=== PATIENT | female | born 1975 | race Caucasian/White ===

== ENCOUNTER 2017-05-23 05:47 | Day surgery (SDC) | payer BC ==
[2017-05-23] MEDS ORDERED: DEXTROSE 5%-LR 1,000 ML IV (06:45)
[2017-05-23] MEDS ORDERED: CEFAZOLIN 1 GM INJ (07:00)
[2017-05-23 07:06] LABS: ADD MAN DIFF? NO
[2017-05-23 07:20] LABS: WHITE BLOOD COUNT 4.6 10^3/ul (4.8-10.8)
[2017-05-23 07:20] LABS: ABNORMAL IP MESSAGE 1; BASOPHILS % 0.4 % (0.0-2.0); EOSINOPHILS # 0.1 10^3/ul (0.0-0.5); EOSINOPHILS % 2.8 % (0.0-7.0); HEMATOCRIT 33.1 % (37.0-47.0); HEMOGLOBIN 10.2 g/dl (12.0-16.0); LYMPHOCYTES # 1.3 10^3/ul (0.8-2.9); LYMPHOCYTES % 28.6 % (15.0-51.0); MEAN CORPUSCULAR HEMOGLOBIN 24.2 pg (29.0-33.0); MEAN CORPUSCULAR HGB CONC 30.8 g/dl (32.0-37.0); MEAN CORPUSCULAR VOLUME 78.4 fl (82.0-101.0); MEAN PLATELET VOLUME 11.4 fl (7.4-10.4); MONOCYTE # 0.4 10^3/ul (0.3-0.9); MONOCYTES % 8.7 % (0.0-11.0); NEUTROPHIL # 2.7 10^3/ul (1.6-7.5); NEUTROPHILS % 59.1 % (39.0-77.0); PLATELET COUNT 219 10^3/UL (140-415); RED BLOOD COUNT 4.22 10^6/ul (4.20-5.40); RED CELL DISTRIBUTION WIDTH 23.4 % (11.5-14.5)
[2017-05-23 07:26] LABS: ADD UMIC YES; UR ASCORBIC ACID 40 mg/dL (NEGATIVE); UR BILIRUBIN (Dip) NEGATIVE (NEGATIVE); UR BLOOD (Dip) 2+ mg/dL (NEGATIVE); UR CLARITY CLEAR (CLEAR); UR COLOR YELLOW (YELLOW); UR GLUCOSE (Dip) NEGATIVE (NEGATIVE); UR KETONES (Dip) NEGATIVE (NEGATIVE); UR LEUKOCYTE ESTERASE (Dip) NEGATIVE Leu/ul (NEGATIVE); UR MUCUS FEW /HPF (NONE SEEN); UR NITRITE (Dip) NEGATIVE (NEGATIVE); UR RBC 15 /HPF (0-5); UR SQUAMOUS EPITHELIAL CELL FEW /HPF (FEW); UR TOTAL PROTEIN (Dip) NEGATIVE (NEGATIVE); UR UROBILINOGEN (Dip) NEGATIVE (NEGATIVE); UR WBC 2 /HPF (0-5)
[2017-05-23 07:33] LABS: POSITIVE DIFF @See below
[2017-05-23 07:36] LABS: INR 0.88; PT RATIO 0.9
[2017-05-23 07:37] LABS: PARTIAL THROMBOPLASTIN TIME 30.2 Sec (25.0-35.0)
[2017-05-23 07:45] LABS: ALANINE AMINOTRANSFERASE 27 IU/L (13-69); ALBUMIN 3.9 g/dl (3.3-4.9); ALBUMIN/GLOBULIN RATIO 1.14; ALKALINE PHOSPHATASE 75 IU/L (42-121); ANION GAP 15 (8-16); ASPARTATE AMINO TRANSFERASE 21 IU/L (15-46); BILIRUBIN,INDIRECT 0.2 mg/dl (0-1.1); BILIRUBIN,TOTAL 0.2 mg/dl (0.2-1.3); CARBON DIOXIDE 24 mmol/L (21-31); CHLORIDE 107 mmol/L (97-110); GLUCOSE 124 mg/dl (70-220); TOTAL PROTEIN 7.3 g/dl (6.1-8.1)
[2017-05-23 07:47] LABS: BLOOD UREA NITROGEN 11 mg/dl (7-20); CALCIUM 8.7 mg/dl (8.4-10.2); CREATININE 0.67 mg/dl (0.44-1.00); SODIUM 142 mmol/L (135-144)
[2017-05-23] MEDS ORDERED: MIDAZOLAM 1 MG/ML 2 ML INJ (07:47)
[2017-05-23] MEDS ORDERED: FENTAnyl 50 MCG/ML VIAL (07:48)
[2017-05-23] MEDS ORDERED: PROPOFOL 20 ML (07:49)
[2017-05-23] MEDS ORDERED: ONDANSETRON 4 MG INJ (07:57)
[2017-05-23] MEDS ORDERED: LIDOCAINE 100 MG SYRINGE (07:57)
[2017-05-23] MEDS: CEFAZOLIN 2 GM/50 ML (PMX) 50 ML IVPB (08:05)
[2017-05-23] MEDS ORDERED: ONDANSETRON 4 MG INJ IV (09:00)
[2017-05-23] MEDS ORDERED: LABETALOL HCL 20MG INJ IV (09:00)
[2017-05-23] MEDS ORDERED: DIPHENHYDRAMINE 50 MG INJ IV (09:00)
[2017-05-23] MEDS ORDERED: MEPERIDINE 25 MG INJ IV (09:00)
[2017-05-23] MEDS ORDERED: KETOROLAC 15 MG INJ IV (09:00)
[2017-05-23] MEDS ORDERED: HYDROmorphONE (0.2 MG/ML) 10ML SYG IV (09:00)
[2017-05-23] MEDS ORDERED: FENTAnyl 50 MCG/ML VIAL IV ×2 (09:00)
[2017-05-23] MEDS ORDERED: METOCLOPRAMIDE 10 MG INJ IV (09:00)
[2017-05-23] MEDS: hydrALAzine 20 MG INJ IV (09:25)
[2017-05-23] MEDS ORDERED: KETOROLAC 30 MG INJ (09:35)
[2017-05-23] MEDS: KETOROLAC 30 MG INJ IV (09:37)
== END 2017-05-23 10:50 | disposition home or self-care (01) ==
LOC: SDS 05:47
DX: N92.1 Excessive and frequent menstruation with irregular cycle (principal); D25.9 Leiomyoma of uterus, unspecified; E11.9 Type 2 diabetes mellitus without complications; I10 Essential (primary) hypertension
CPT/HCPCS: 58353; 71045; 80053; 81001; 84703; 85025; 85610; 85730; 88305

== ENCOUNTER 2017-07-10 06:03 | Inpatient (IN) | payer BC ==
[2017-07-10] MEDS ORDERED: ROCURONIUM 50 MG INJ ×2 (07:00→08:18)
[2017-07-10] MEDS ORDERED: SUCCINYLCHOLINE CHLORIDE 100 MG/5 ML SYG IV (07:00)
[2017-07-10] MEDS ORDERED: CEFAZOLIN 2 GM/50 ML (PMX) 50 ML IVPB (07:00)
[2017-07-10] MEDS ORDERED: LACTATED RINGER'S 1,000 ML IV* (07:00)
[2017-07-10] MEDS ORDERED: ACETAMINOPHEN 1000 MG/100 ML IVPB (07:00)
[2017-07-10] MEDS ORDERED: MIDAZOLAM 1 MG/ML 2 ML INJ (07:56)
[2017-07-10] MEDS ORDERED: FENTAnyl 50 MCG/ML VIAL ×2 (07:56→08:45)
[2017-07-10] MEDS ORDERED: LIDOCAINE 2% (SDV) 5 ML INJ (07:59)
[2017-07-10] MEDS ORDERED: PROPOFOL 20 ML (07:59)
[2017-07-10] MEDS ORDERED: CEFAZOLIN 1 GM INJ (08:18)
[2017-07-10] MEDS ORDERED: HYDROCODONE/APAP (5/325) TAB PO (08:30)
[2017-07-10] MEDS ORDERED: DIPHENHYDRAMINE 50 MG CAP PO (08:30)
[2017-07-10] MEDS ORDERED: BISACODYL (EC) 5 MG TAB PO (08:30)
[2017-07-10] MEDS ORDERED: KETOROLAC 30 MG INJ IV ×2 (08:30→09:00)
[2017-07-10] MEDS ORDERED: ZOLPIDEM 5 MG TAB PO (08:30)
[2017-07-10] MEDS ORDERED: HYDROmorphONE 0.5 MG/0.5 ML SYG IV (08:30)
[2017-07-10] MEDS ORDERED: METOCLOPRAMIDE 10 MG INJ (08:41)
[2017-07-10] MEDS ORDERED: ONDANSETRON 4 MG INJ (08:41)
[2017-07-10] MEDS ORDERED: DEXAMETHASONE 4 MG/ML 1 ML INJ (08:43)
[2017-07-10] MEDS ORDERED: hydrALAzine 20 MG INJ (08:48)
[2017-07-10] MEDS ORDERED: hydrALAzine 20 MG INJ IV (09:00)
[2017-07-10] MEDS ORDERED: LABETALOL HCL 20MG INJ IV (09:00)
[2017-07-10] MEDS ORDERED: METOCLOPRAMIDE 10 MG INJ IV (09:00)
[2017-07-10] MEDS ORDERED: FENTAnyl 50 MCG/ML VIAL IV ×2 (09:00)
[2017-07-10] MEDS ORDERED: HYDROmorphONE (0.2 MG/ML) 10ML SYG IV (09:00)
[2017-07-10] MEDS: BENAZEPRIL 5 MG TAB PO (09:00)
[2017-07-10] MEDS ORDERED: ALBUMIN HUMAN 5% 250 ML (09:59)
[2017-07-10] MEDS: HYDROmorphONE (0.2 MG/ML) 10ML SYG IV ×2 (11:11→11:21)
[2017-07-10] MEDS: ONDANSETRON 4 MG INJ IV ×2 (11:13→21:05)
[2017-07-10] MEDS: METOCLOPRAMIDE 10 MG TAB PO ×2 (12:05→17:02)
[2017-07-10] MEDS: LACTATED RINGER'S 1,000 ML IV ×3 (12:10→22:18)
[2017-07-10] MEDS: KETOROLAC 30 MG INJ IV ×3 (14:00→21:05)
[2017-07-10] MEDS: CEFAZOLIN 1 GM/50 ML (PMX) 50 ML IVPB ×2 (14:04→21:13)
[2017-07-10] MEDS: metFORMIN 500 MG TAB PO (17:28)
[2017-07-10] MEDS ORDERED: DEXTROSE 50% 50 ML SYRINGE IV ×2 (17:30)
[2017-07-10] MEDS ORDERED: GLUCAGON 1 MG INJ IM (17:30)
[2017-07-10] MEDS ORDERED: GLUCOSE GEL 15 GRAM TUBE BUCCAL (17:30)
[2017-07-10] MEDS ORDERED: GLUCOSE GEL 15 GRAM TUBE PO ×2 (17:30)
[2017-07-11] MEDS: METOCLOPRAMIDE 10 MG TAB PO ×4 (00:22→18:24)
[2017-07-11] MEDS: KETOROLAC 30 MG INJ IV ×4 (03:24→20:40)
[2017-07-11 05:07] LABS: ADD MAN DIFF? NO
[2017-07-11 05:12] LABS: WHITE BLOOD COUNT 12.9 10^3/ul (4.8-10.8)
[2017-07-11 05:12] LABS: BASOPHILS % 0.1 % (0.0-2.0); HEMATOCRIT 32.7 % (37.0-47.0); HEMOGLOBIN 11.1 g/dl (12.0-16.0); LYMPHOCYTES % 7.5 % (15.0-51.0); MEAN CORPUSCULAR HEMOGLOBIN 27.5 pg (29.0-33.0); MEAN CORPUSCULAR HGB CONC 33.9 g/dl (32.0-37.0); MEAN CORPUSCULAR VOLUME 80.9 fl (82.0-101.0); MONOCYTE # 1.1 10^3/ul (0.3-0.9); MONOCYTES % 8.2 % (0.0-11.0); NEUTROPHIL # 10.9 10^3/ul (1.6-7.5); PLATELET COUNT 233 10^3/UL (140-415); RED BLOOD COUNT 4.04 10^6/ul (4.20-5.40); RED CELL DISTRIBUTION WIDTH 18.7 % (11.5-14.5)
[2017-07-11] MEDS: CEFAZOLIN 1 GM/50 ML (PMX) 50 ML IVPB (05:27)
[2017-07-11] MEDS: LACTATED RINGER'S 1,000 ML IV (08:15)
[2017-07-11] MEDS: metFORMIN 500 MG TAB PO ×2 (09:23→18:24)
[2017-07-11] MEDS: BENAZEPRIL 5 MG TAB PO (09:24)
[2017-07-12] MEDS: METOCLOPRAMIDE 10 MG TAB PO ×5 (00:11→23:32)
[2017-07-12] MEDS: KETOROLAC 30 MG INJ IV (02:30)
[2017-07-12] MEDS: HYDROCODONE/APAP (5/325) TAB PO (03:45)
[2017-07-12] MEDS: metFORMIN 500 MG TAB PO ×3 (09:17→18:02)
[2017-07-12] MEDS: IBUPROFEN 800 MG TAB PO ×3 (09:18→20:17)
[2017-07-12] MEDS: BISACODYL (EC) 5 MG TAB PO (09:18)
[2017-07-12] MEDS: BENAZEPRIL 5 MG TAB PO (09:18)
[2017-07-13 05:28] LABS: ADD MAN DIFF? NO
[2017-07-13 05:42] LABS: WHITE BLOOD COUNT 6.9 10^3/ul (4.8-10.8)
[2017-07-13 05:42] LABS: BASOPHILS % 0.4 % (0.0-2.0); EOSINOPHILS # 0.3 10^3/ul (0.0-0.5); EOSINOPHILS % 4.8 % (0.0-7.0); HEMATOCRIT 32.6 % (37.0-47.0); HEMOGLOBIN 10.8 g/dl (12.0-16.0); LYMPHOCYTES # 1.7 10^3/ul (0.8-2.9); LYMPHOCYTES % 24.2 % (15.0-51.0); MEAN CORPUSCULAR HEMOGLOBIN 27.6 pg (29.0-33.0); MEAN CORPUSCULAR HGB CONC 33.1 g/dl (32.0-37.0); MEAN CORPUSCULAR VOLUME 83.4 fl (82.0-101.0); MONOCYTE # 0.6 10^3/ul (0.3-0.9); MONOCYTES % 7.9 % (0.0-11.0); NEUTROPHIL # 4.3 10^3/ul (1.6-7.5); NEUTROPHILS % 62.4 % (39.0-77.0); PLATELET COUNT 226 10^3/UL (140-415); RED BLOOD COUNT 3.91 10^6/ul (4.20-5.40); RED CELL DISTRIBUTION WIDTH 18.1 % (11.5-14.5)
[2017-07-13] MEDS: METOCLOPRAMIDE 10 MG TAB PO ×2 (06:50→12:00)
[2017-07-13] MEDS: IBUPROFEN 800 MG TAB PO ×2 (08:44→12:33)
[2017-07-13] MEDS: BENAZEPRIL 5 MG TAB PO (08:44)
[2017-07-13] MEDS: metFORMIN 500 MG TAB PO (08:44)
[2017-07-13] MEDS ORDERED: IBUPROFEN 800 MG TAB PO (09:00)
== END 2017-07-13 17:06 | disposition home or self-care (01) | DRG 743 ==
LOC: REC 06:03 → MS1 11:35
PROVIDERS: Obstetrics & Gynecology
PROC: 0UT90ZZ Resection of Uterus, Open Approach (ICD-10-PCS; principal; 2017-07-10 07:30)
PROC: 0D5U0ZZ Destruction of Omentum, Open Approach (ICD-10-PCS; 2017-07-10 07:30)
PROC: 0UT70ZZ Resection of Bilateral Fallopian Tubes, Open Approach (ICD-10-PCS; 2017-07-10 07:30)
PROC: 0UB20ZZ Excision of Bilateral Ovaries, Open Approach (ICD-10-PCS; 2017-07-10 07:30)
PROC: 0U520ZZ Destruction of Bilateral Ovaries, Open Approach (ICD-10-PCS; 2017-07-10 07:30)
DX: D25.9 Leiomyoma of uterus, unspecified (principal); R10.2 Pelvic and perineal pain; N99.4 Postprocedural pelvic peritoneal adhesions; N92.1 Excessive and frequent menstruation with irregular cycle; E11.9 Type 2 diabetes mellitus without complications; I10 Essential (primary) hypertension; Z98.51 Tubal ligation status; N85.4 Malposition of uterus; N70.11 Chronic salpingitis; N80.1 Endometriosis of ovary; E28.2 Polycystic ovarian syndrome
CPT/HCPCS: 82962; 85025; 86850; 86900; 86901; 88305